=== PATIENT | male | born 1950 | race Caucasian/White ===

== ENCOUNTER 2017-06-12 20:38 | Emergency (ER) | payer OTHER ==
[2017-06-12 20:46] VITALS: BP 189/91
[2017-06-12] MEDS ORDERED: Naproxen TAB* 250 MG PO ONE (21:14)
[2017-06-12] MEDS ORDERED: oxyCODONE/Acetamin 5/325 MG* TAB PO ONE (21:15)
[2017-06-12] MEDS ORDERED: HYDROcodone/ACETAMIN 5-325 MG* 1 TAB PO ONE ×2 (21:19→21:20)
--- NOTE | 2017-06-12 21:26 | UC ---
Lower Extremity/Ankle HPI - HPI Summary HPI Summary: 66 year old male with history of htn here with right leg and gluteal pain. Sharp pain radiating to ankle and foot. No recent injury. Started one month ago after he played golf. But once he stopped playing golf, his symptoms improved until two days ago, he reports developing right leg pain. Partially alleviated with NSAID and ice. Worse at night. Tingling in between 1st and 2nd toes. Was treated for sciatica few years ago with similar symptoms, improved after PT. - History of Current Complaint Chief Complaint: UCBackPain Stated Complaint: GLUTE,LEG PAIN Time Seen by Provider: 06/12/17 21:01 Hx Obtained From: Patient Onset/Duration: Gradual Onset, Lasting Days Aggravating Factor(s): Other - sitting Alleviating Factor(s): Ice, OTC Meds - Risk Factors Gout Risk Factors: Negative DVT Risk Factors: Negative Septic Arthritis Risk Factor: Negative - Allergies/Home Medications Allergies/Adverse Reactions: Allergies Allergy/AdvReac Type Severity Reaction Status Date / Time Penicillins Allergy Anaphylatic Verified 06/12/17 20:46 Shock Home Medications: Home Medications Aspirin [Aspirin 81 MG TAB] 1 tab PO DAILY 06/12/17 [History Confirmed 06/12/17] Magnesium [Magnesium 400 mg] 1 tab PO DAILY 06/12/17 [History Confirmed 06/12/17 ] Ramipril CAP* [Altace CAP*] 1 tab PO DAILY 06/12/17 [History Confirmed 06/12/17] Simvastatin [Zocor 5 MG-] 1 tab PO DAILY 06/12/17 [History Confirmed 06/12/17] PMH/Surg Hx/FS Hx/Imm Hx Cardiovascular History: Hypertension - Surgical History Surgical History: None - Social History Alcohol Use: Occasionally Substance Use Type: None Smoking Status (MU): Never Smoked Tobacco Review of Systems Constitutional: Negative Skin: Negative Eyes: Negative ENT: Negative Respiratory: Negative Cardiovascular: Negative Gastrointestinal: Negative Genitourinary: Negative Motor: Negative Neurovascular: Negative Musculoskeletal: Negative Neurological: Paresthesia Psychological: Negative All Other Systems Reviewed And Are Negative: Yes Physical Exam Triage Information Reviewed: Yes Appearance: Well-Appearing, No Pain Distress Vital Signs: Initial Vital Signs Temp 37.1 C 06/12/17 20:42 Pulse 86 06/12/17 20:42 Resp 18 12/01/17 20:42 BP 189/91 06/12/17 20:42 Pulse Ox 98 06/12/17 20:42 Eye Exam: Normal ENT Exam: Normal Dental Exam: Normal Neck exam: Normal Neck: Positive: 1 Respiratory Exam: Normal Cardiovascular Exam: Normal Abdominal Exam: Normal Musculoskeletal: Positive: Other: - SILT in s/s/sp/dp/ta Motor 4/5 in RLE 5/5 in LLE Psychological Exam: Normal Skin Exam: Normal Lower Extremity Course/Dx - Course Course Of Treatment: Sciatica. NSAID. Percocet for severe pain. Referral for PT and rx for percocet for pain at night. - Differential Dx/Diagnosis Differential Diagnosis/HQI/PQRI: Sciatica, Sprain, Strain Provider Diagnoses: sciatica Discharge - Discharge Plan Condition: Good Disposition: HOME Prescriptions: Naproxen [Naproxen EC 500 MG TAB] 500 mg PO BID #20 tab oxyCODONE/Acetamin 5/325 MG* [Percocet 5/325 TAB*] 1 tab PO Q6H PRN #10 tab MDD 4 PRN Reason: Pain Patient Education Materials: Sciatica (ED) Referrals: Issa Stanton MD [Primary Care Provider] - Additional Instructions: Do not combine advil with naproxen. Take naproxen twice a day. Take percocet for severe pain.
== END 2017-06-12 21:36 | disposition home or self-care (01) ==
LOC: UCEAST 20:38
DX: M54.31 Sciatica, right side (principal)
CPT/HCPCS: 99212; A9270-GY; G0463

== ENCOUNTER 2017-09-02 11:30 | Day surgery (SDC) | payer OTHER ==
[~2017-09-02 11:30] MED LIST: Buffered Lidocaine 0.9% SYRIN* 5 ML/SYR SYRINGE INTRADERM ONE; DiMENhydriNATE IV* 50 MG/ML VIAL IV PUSH PRN; Famotidine IV* 10 MG/ML 2 ML (20 mg) IV ONE; Midazolam* 1 MG/ML 10 ML VIAL (10 MG) ONE; Morphine INJ* 2 MG/ML 1 ML CARPUJECT IV PRN; Naloxone* 0.4 MG/ML 1 ML VIAL IV PRN; PROCHLORPERAZINE INJ 5 MG/ML 2 ML VIAL IV PRN; Scopolamine 1.5 mg* PATCH TRANSDERM PRN; fentaNYL* 50 MCG/ML 2 ML VIAL (100 MCG VIAL) IV PRN; fentaNYL* 50 MCG/ML 2 ML VIAL (100 MCG VIAL) ONE; oxyCODONE/Acetamin 5/325 MG* TAB PO PRN
[2017-09-02] MEDS ORDERED: Famotidine IV* 10 MG/ML 2 ML (20 mg) ONE (11:49)
[2017-09-02] MEDS ORDERED: Clindamycin 900 MG IVPREMIX(* 900 MG/50 ML SDV IV ONE (11:50)
[2017-09-02] MEDS ORDERED: Buffered Lidocaine 0.9% SYRIN* 5 ML/SYR SYRINGE ONE (11:50)
[2017-09-02] MEDS ORDERED: Bupivacaine 0.5% SDV PF* 10-30ML VIAL ONE (13:22)
[2017-09-02] MEDS ORDERED: EPINEPHRINE 1 MG/ML 1 ML VIAL ONE (13:22)
[2017-09-02] MEDS ORDERED: Dexamethasone IV* 4 MG/ML 1 ML (4 MG) ONE (14:04)
[2017-09-02] MEDS ORDERED: Ketorolac INJ* 30 MG/ML 1 ML VIAL ONE (14:04)
[2017-09-02] MEDS ORDERED: Ondansetron INJ* 2 MG/ML VIAL ONE (14:04)
[2017-09-02] MEDS ORDERED: Propofol* 10 MG/ML 20 ML BTL IV PUSH ONE (14:04)
[2017-09-02] MEDS ORDERED: fentaNYL* 50 MCG/ML 2 ML VIAL (100 MCG VIAL) ONE (14:05)
[2017-09-02 15:40] VITALS: BP 155/78
--- NOTE | 2017-09-03 19:53 | OP ---
DATE OF OPERATION: 09/02/17 - [facility] DATE OF : 54 SURGEON: Tito Burgess MD NETWORK PROJECT MANAGER: FRANCOIS Chaidez. A physician telecom assistant was required for the length of the procedure for positioning, knee manipulation, help with instrumentation. ANESTHESIOLOGIST: Dr. Pedro Forde. ANESTHESIA: General anesthesia, local anesthesia approximately 15 cc of 0.5% Marcaine without epinephrine into subcutaneous tissues. PRE-OP DIAGNOSIS: Left knee loose body with mechanical symptoms. POST-OP DIAGNOSES: 1. Left knee loose body with mechanical symptoms. 2. Left knee anterior synovitis. OPERATIVE PROCEDURE: 1. Left knee arthroscopic removal of loose body. 2. Left knee arthroscopic anterior synovectomy. ANTIBIOTICS: Clindamycin 900 mg IV. IV FLUIDS: 800 cc crystalloid. TOURNIQUET TIME: 16 minutes at 300 mmHg. SPECIMEN: One loose body. Loose body was approximately 15 mm in the length. IMPLANTS: None. COMPLICATIONS: None. ESTIMATED BLOOD LOSS: Zero cc. 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 These symptoms started about the time he had multiple episodes of left knee buckling, which he thought was secondary to right lower extremity radiculopathy. The patient had the sense there might be a loose body floating around about the left knee. He described locking of the knee, it getting stuck in position at night and significant catching during the day. This would cause significant pain. In the office, I was able to palpate a mobile loose body about the left knee. X - rays confirmed the presence as did an MRI that I ordered after our clinic visit. Given the significant pain and mechanical symptoms that the patient was having, surgery was indicated. As well, surgery was indicated to prevent that loose body from causing significant damage to the articular cartilage surfaces of the knee. The patient was noted to not have any significant degenerative changes about the knee by x-ray and MRI otherwise. I discussed risks and potential complications of surgery. DESCRIPTION OF PROCEDURE: In preoperative holding, the patient signed a written consent. Operative extremity was marked in preoperative holding. The patient was taken to the operating room, placed supine on the operating room table. The patient was sedated and intubated. A tourniquet was placed about the left proximal thigh. Blankets were placed under the left hemipelvis. A lateral thigh post was placed on the table. The left lower extremity was prepped with ChloraPrep. The left lower extremity was then draped. Surgical time-out was performed. Esmarch was applied and tourniquet was elevated to 300 mmHg. The knee was flexed to 90 degrees. An anterolateral knee arthroscopy portal was established. Diagnostic arthroscopy was commenced. Patellofemoral compartment showed grade 1 to 2 changes of the trochlear groove. No unstable articular cartilage. No loose body in the suprapatellar pouch. I next moved down to the medial compartment and the intracondylar notch. I noted some significant synovitis anteriorly. I was then able to visualize the loose body directly anterior to the ACL and the intracondylar notch. An anteromedial knee arthroscopy portal was established under direct visualization. As I maneuvered to remove the loose body, the loose body moved. The grasper was not able to pull it out of the knee from the notch and so the fragment moved. It settled in the medial gutter. Under direct visualization, I made a short arthroscopy portal, directly overlying the loose body in the medial gutter, the skin incision just anterior to the loose body. I then used a grasper to remove the loose body. The loose body came out in 1 piece. I next returned to the intracondylar notch in the anterior aspect of the knee and debrided some mild to moderate anterior synovitis. I then looked into the medial and lateral compartments. Medial compartment had some low-grade articular cartilage wear, grade 1 at least, about the medial femoral condyle, diffuse with no unstable cartilage lesions. No medial meniscus tear. Lateral compartment showed no meniscal injury or articular cartilage injury. I next moved back to the patellofemoral compartment. Again, no lesions here. No loose bodies in the supracondylar pouch. Fluid and instruments were removed from the knee. Three skin incisions were closed with [id number] and twelve stitches using nylon 4.0 suture. Local anesthetic, Marcaine 0.5% without epinephrine was injected into the subcutaneous tissue, surrounding the surgical incisions. Xeroform, 4x4s, Webril, [place] bandage from foot to proximal thigh. Tourniquet was let down. A cooling unit was placed on the knee. On the back table, we obtained arthroscopic photographs of the removed loose body. We also used an operating room camera to take an image of the loose body with a ruler placed nearby to confirm the size of the loose body. DISPOSITION: The patient will start physical therapy tomorrow. He will take Percocet as needed for pain control. Aspirin x2 weeks for DVT prophylaxis. The patient will follow up in 10 to 14 days postoperative for a wound check and removal of stitches. Crutches as needed. [id number]/[facility] #: [id number] CHRISTINA
[2017-09-05] MEDS ORDERED: Scopolamine PATCH Remove* 1 NOTE MISC PATCH OFF ONE (06:03)
== END 2017-09-02 15:41 | disposition home or self-care (01) ==
LOC: OR 11:30
PROVIDERS: ATTEND Orthopaedic Surgery
DX: M23.42 Loose body in knee, left knee (principal); M65.862 Other synovitis and tenosynovitis, left lower leg; I10 Essential (primary) hypertension
CPT/HCPCS: 88304; 88311; J1100; J1885; J2250; J2405; J2704; J3010